=== PATIENT | female | born 1990 | race Caucasian/White ===

== ENCOUNTER 2016-11-26 22:24 | Emergency (ER) | payer OTHER ==
[~2016-11-26] VITALS: Ht 157.5 cm; Wt 54.8 kg
[2016-11-26 22:27] VITALS: TEMP 36.7; Ht 157.5 cm; Wt 54.8 kg
[2016-11-26] MEDS ORDERED: CLINDAMYCIN 150MG HOME PACK PO ONE (22:45)
[2016-11-26] MEDS ORDERED: CLIN300C2 PO (23:00)
--- NOTE | 2016-11-26 23:01 | EMERGENCY ROOM VISIT NOTE ---
ED Visit Note First contact with patient: 22:31 CHIEF COMPLAINT: Toothache HISTORY OF PRESENT ILLNESS: This 26-year-old female patient presented to the emergency department ambulatory complaining of right lower tooth pain. The patient states that she has had problems with a right lower dental abscess. She states that she has previously been on antibiotics and has had incision and drainage performed. She reports that over the past one week, she has had swelling in the right lower jaw. She recently got dental insurance and does not yet have an appointment with a dentist. She states that the pain is sharp and rates it a 3/10. She has been taking ibuprofen and Tylenol with some relief. She does state that the pain made her slightly nauseous today. Denies facial swelling or fever. The patient denies any discharge from the mouth. REVIEW OF SYSTEMS: A 6 system review of systems was completed with positives and pertinent negatives listed in the HPI. ALLERGIES: No known drug allergies MEDICATIONS: No chronic medications PMH: No significant past medical history. SOCIAL HISTORY: The patient lives locally with her family. PHYSICAL EXAM: Vitals are noted on the nurse's note and reviewed by myself. Vital signs stable. Temperature 36.7C orally. GENERAL: This is a 26-year-old female, in no acute distress, nondiaphoretic, well-developed well-nourished. Mouth: The right lower second molar is carious and the gum is swollen and tender around it, without any discharge or signs of an abscess. The remainder of the pharynx and tonsils are without erythema, edema, or exudate. No tenderness or fluctuance of the floor of the mouth. The airway is patent. There is minimal swelling of the right mandible. No induration or erythema. There is mild right cervical adenopathy. The patient appears uncomfortable and in pain. The patient has overall average dental hygiene. EARS: External auditory canals clear, tympanic membranes pearly rose without erythema or effusion bilaterally. ED COURSE: The patient was evaluated as above. She does appear to have an early dental abscess. There is no fluctuance of the floor of the mouth or neck swelling to suggest Konstantin angina. The patient is afebrile. She does have some swelling, but there is no fluctuance right now and I do not feel that incision and drainage is indicated. The patient will be placed on clindamycin, as she states she does not do well with penicillins. However, the patient was informed that his symptoms worsen she may need to return here for IV antibiotics or incision and drainage. She was informed that she should return immediately if she has neck swelling, trouble swallowing, fevers. She was instructed to follow-up with a dentist as soon as possible. She verbalized understanding of my assessment and treatment plan and was discharged home in good condition. DIAGNOSIS: Dental abscess Current/Historical Medications Scheduled Clindamycin Hcl (Cleocin), 300 MG PO QID Vital Signs Date Time Temp Pulse Resp B/P Pulse Ox O2 Delivery O2 Flow Rate FiO2 11/26/16 22:27 36.7 84 18 114/79 98 Room Air Departure Information Impression Primary Impression: Periapical abscess Dispostion Home / Self-Care Condition GOOD Prescriptions Clindamycin Hcl (CLEOCIN) 300 Mg Cap 300 MG PO QID for 10 Days, #40 CAP Prov: Marimar Vuong .JAME 11/26/16 Referrals No Doctor, Assigned (PCP) Patient Instructions My [facility] Additional Instructions You have been treated in the Emergency Department for Dental Pain. You were prescribed clindamycin to be taken 300 mg, 4 times daily. This is an antibiotic. All antibiotics have the potential to cause diarrhea. Stop this medication and contact a medical provider if you were to develop any significant adverse side effects including: wheezing, shortness of breath, passing out, vomiting, or a diffuse rash. Always take antibiotics as directed and COMPLETE the ENTIRE course regardless of the improvement of your symptoms. For pain control, you can use the following [id number] medicines (if >12 yo): - Regular strength (325mg/tab) Tylenol (acetaminophen) 2 tabs every 4-6 hours as needed. Do not exceed 12 tablets in a 24 hour period. Avoid taking more than 4 grams (4000 mg) of Tylenol per day. This includes any other sources of acetaminophen you may take on a regular basis. - Regular strength (200 mg/tab) Advil (ibuprofen) 1-2 tabs every 4-6 hours as needed. Do not exceed a dose of 3200 mg per day. Refrain from smoking cigarettes or using chewing tobacco until you have been evaluated by your dentist. Keeping beverages lukewarm and consuming soft foods can decrease your pain. Warm compresses over the affected area may offer some relief. You MUST seek evaluation of your dental pain by a dentist following your visit to the Emergency Department. The Emergency Department is not capable of treating dental issues long-term. You should call your dentist as soon as possible to make an appointment for evaluation of your dental pain. You may follow up with Dr. Mccain. He is a local dentist accepting new patients. [phone] [address] [facility], [address] Return to the emergency department if you develop the following symptoms despite treatment course outlined above: fever, intractable pain, swelling of the neck, difficulty swallowing, or any other new/concerning symptoms.
[2016-11-26 23:11] VITALS: BP 116/61; PULSE 68; O2SAT 98
== END 2016-11-26 23:14 | disposition home or self-care (01) ==
LOC: C.EDB 22:26
DX: K04.7 Periapical abscess without sinus (principal)

== ENCOUNTER → 2017-10-20 | Outpatient (CLI) | payer OTHER | END | disposition home or self-care (01) | LOC: C.LABSPEC 10:42 | PROVIDERS: ATTEND Obstetrics & Gynecology | DX: Z34.82 Encounter for supervision of other normal pregnancy, second trimester (principal) ==

== ENCOUNTER → 2017-11-04 | Outpatient (CLI) | payer OTHER ==
[2017-11-04 12:26] LABS: BASO % 0.2 %; BASO ABS # 0.01 K/uL (0-0.2); EOS % 0.8 %; EOS ABS # 0.05 K/uL (0-0.5); HEMATOCRIT 36.2 % (37-47); HEMOGLOBIN 12.3 g/dL (12.0-16.0); IG# 0.01 K/uL (0.00-0.02); LYMPH % 25.4 %; LYMPH ABS # 1.66 K/uL (1.2-3.4); MEAN CELL VOLUME 85.8 fL (80-100); MEAN CORPUSCULAR HEMOGLOBIN 29.1 pg (25-34); MEAN PLATELET VOLUME 10.6 fL (7.4-10.4); MONO % 7.2 %; MONO ABS # 0.47 K/uL (0.11-0.59); NEUT % 66.2 %; NEUT ABS # 4.33 K/uL (1.4-6.5); PLATELET COUNT 216 K/uL (130-400); WHITE BLOOD COUNT 6.53 K/uL (4.8-10.8)
== END | disposition home or self-care (01) ==
LOC: C.LAB1850 10:37
PROVIDERS: ATTEND Obstetrics & Gynecology
DX: Z34.82 Encounter for supervision of other normal pregnancy, second trimester (principal)

== ENCOUNTER → 2017-11-04 | Outpatient (CLI) | payer OTHER | END | disposition home or self-care (01) | LOC: C.PAPS 14:10 | PROVIDERS: ATTEND Obstetrics & Gynecology | DX: Z34.83 Encounter for supervision of other normal pregnancy, third trimester (principal) ==